=== PATIENT | male | born 1955 | race Caucasian/White ===

== ENCOUNTER 2018-10-29 11:52 | Inpatient (IN) | payer SELFPAY ==
[~2018-10-29] VITALS: Ht 175.3 cm; Wt 94.2 kg
[2018-10-29] MEDS ORDERED: CLINDAMYCIN 600MG IV 50 ML IV ONE (12:45)
[2018-10-29 13:42] LABS: Basophils # (auto) 0.1 uL; Basophils % (auto) 1.4 % (0.0-2.0); Eosinophils # (auto) 0.1 uL; Eosinophils % (auto) 2.7 % (0.0-7.0); Hematocrit 36.5 % (41.0-53.0); Hemoglobin 12.2 g/dL (13.5-17.5); Lymphocytes # (auto) 0.7 uL; Lymphocytes % (auto) 13.7 % (10.0-50.0); Mean Corpuscular Hemoglobin 33.9 pg (28.0-32.0); Mean Corpuscular Hgb Conc. 33.5 g/dL (32.0-36.0); Mean Corpuscular Volume 101.1 fL (80.0-100.0); Monocytes # (auto) 0.3 uL; Monocytes % (auto) 6.5 % (0.0-12.0); Neutrophils # (auto) 3.7 uL; Neutrophils % (auto) 75.7 % (37.0-80.0); Platelet Count (auto) 319 10^3/uL (140-450); Red Blood Cells 3.61 10^6/uL (4.5-5.90); Red Cell Distribution Width 16.7 % (11.8-14.3); White Blood Cell 4.8 10^3/uL (4.4-10.8)
[2018-10-29 13:56] LABS: Albumin 3.7 g/dL (3.4-5.0); Magnesium 1.7 mg/dL (1.6-2.6)
[2018-10-29 13:59] LABS: BUN/Creatinine Ratio 3.5; Bilirubin, Total 0.8 mg/dL (0.2-1.0); Total Protein 7.3 g/dL (6.4-8.2)
[2018-10-29 14:16] LABS: Potassium 2.9 mmol/L (3.5-5.1)
[2018-10-29] MEDS ORDERED: NITROGLYCERIN 0.4 MG SL TAB SL PRN (14:30)
[2018-10-29] MEDS ORDERED: HYDROcodone-ACET 5/325MG TAB PO PRN (14:30)
[2018-10-29] MEDS ORDERED: FUROSEMIDE 40 MG/4 ML VIAL IV ONE (14:30)
[2018-10-29] MEDS ORDERED: MORPHINE SULFATE 4 MG/ML SYR/VIAL IV PRN (14:30)
[2018-10-29] MEDS ORDERED: ONDANSETRON HCL 4 MG/2 ML VIAL IV PRN (14:30)
[2018-10-29] MEDS ORDERED: POTASSIUM CHL 20 Meq TABLET PO ONE (14:30)
[2018-10-29] MEDS ORDERED: MULTIPLE VITAMIN TAB PO ONE (14:30)
[2018-10-29] MEDS ORDERED: FUROSEMIDE 40 MG/4 ML VIAL IV STA (15:20)
[2018-10-29] MEDS ORDERED: POTASSIUM CHL 20MEQ/100ML 100 ML IV ONE (15:30)
[2018-10-29] MEDS: FUROSEMIDE 40 MG/4 ML VIAL IV SCH (18:22)
[2018-10-29 19:38] LABS: Urine WBC None Seen /hpf (0 - 3)
[2018-10-29 19:52] LABS: Urine Bacteria NONE SEEN /hpf (None Seen); Urine Blood Negative /uL (Negative); Urine Specific Gravity 1.004 (1.001-1.035)
[2018-10-29 20:05] LABS: Alcohol, Urine < 3.0 mg/dL (0-5); Amphetamine Screen, Urine NEGATIVE (NEGATIVE); Barbiturate Scree,Urine NEGATIVE (NEGATIVE); Benzodiazephine Screen, Urine NEGATIVE (NEGATIVE); Cannabinoid Screen, Urine NEGATIVE (NEGATIVE); Cocaine Screen, Urine NEGATIVE (NEGATIVE); Opiate Scree,Urine NEGATIVE (NEGATIVE); Phencyclidine Screen, Urine NEGATIVE (NEGATIVE)
--- NOTE | 2018-10-29 21:06 | NUR ---
Telemetry admit from ER [facility] admitted to Telemetry unit after SBAR received. Patient oriented to Ramone Pacheco, primary RN, unit, room, bed, and unit policies regarding patient care and visiting hours. Patient now on continuous telemetry monitoring, tele box # 19 and telemetry reading on arrival to unit is sinus rhythm. Patient placed on bedside oxygen, weighed by bedscale and encouraged to call if they need something. All questions and concerns addressed, patient verbalized understanding.
[2018-10-29 21:30] VITALS: BP 148/80
[2018-10-29] MEDS: POTASSIUM CHL 20 Meq TABLET PO SCH (21:37)
[2018-10-29] MEDS: ceFAZolin 1GM/50ML 50 ML IV SCH (21:37)
[2018-10-29 21:58] VITALS: BP 148/80
[2018-10-30 05:04] VITALS: BP 117/70
[2018-10-30 05:38] LABS: Basophils # (auto) 0.1 uL; Eosinophils # (auto) 0.1 uL; Lymphocytes # (auto) 0.5 uL
[2018-10-30 05:41] LABS: Basophils % (auto) 1.2 % (0.0-2.0); Eosinophils % (auto) 2.4 % (0.0-7.0); Hematocrit 35.8 % (41.0-53.0); Hemoglobin 12.6 g/dL (13.5-17.5); Lymphocytes % (auto) 9.1 % (10.0-50.0); Mean Corpuscular Hemoglobin 35.5 pg (28.0-32.0); Mean Corpuscular Hgb Conc. 35.3 g/dL (32.0-36.0); Mean Corpuscular Volume 100.5 fL (80.0-100.0); Monocytes # (auto) 0.2 uL; Neutrophils # (auto) 4.1 uL; Neutrophils % (auto) 82.3 % (37.0-80.0); Platelet Count (auto) 296 10^3/uL (140-450); Red Blood Cells 3.56 10^6/uL (4.5-5.90); Red Cell Distribution Width 16.5 % (11.8-14.3)
[2018-10-30] MEDS: ceFAZolin 1GM/50ML 50 ML IV SCH ×3 (05:59→21:55)
[2018-10-30] MEDS: FUROSEMIDE 40 MG/4 ML VIAL IV SCH ×2 (05:59→17:20)
[2018-10-30 06:06] LABS: INR 1.16 (0.9-1.15); Partial Thromboplastin Time 40.8 sec (23.78-33.04); Prothrombin Time 12.3 sec (9.27-12.13)
[2018-10-30 06:34] LABS: Potassium 3.6 mmol/L (3.5-5.1)
[2018-10-30 07:04] LABS: BUN/Creatinine Ratio 4.8; Calcium 7.7 mg/dL (8.5-10.1)
--- NOTE | 2018-10-30 07:30 | NUR ---
Patient stable at this time, no sob or pain. Endorsed care to Chano JOYNER.
[2018-10-30 08:00] VITALS: BP 112/81
--- NOTE | 2018-10-30 08:40 | NUR ---
PATIENT DISPOSITION PATIENT DOES NOT STAY ON TOPIC IN CONVERSATION, SPEECH IS SLOW AND SOMEWHAT GARBLED, MANY TIMES HIS STATEMENTS ARE IRRELEVANT TO QUESTIONS BEING ASKED, DISTRACTION TECHNIQUES AND FREQUENT REPEATED CUES ARE NEEDED TO BE ABLE TO EXIT A CONVERSATION WITH THE PATIENT. PATIENT FREQUENTLY ASKS FOR ORANGE JUICE AND ROOM TEMPERATURE WATER.
[2018-10-30 08:48] VITALS: BP 112/81
[2018-10-30] MEDS: POTASSIUM CHL 20 Meq TABLET PO SCH ×2 (11:31→21:56)
[2018-10-30] MEDS: MULTIPLE VITAMIN TAB PO SCH (11:32)
[2018-10-30] MEDS: LISINOPRIL 10 MG TAB PO SCH (11:32)
[2018-10-30] MEDS: ENOXAPARIN SOD 40 MG/0.4 ML SYRINGE SC SCH (11:33)
[2018-10-30 13:00] VITALS: BP 163/98
--- NOTE | 2018-10-30 13:40 | NUR ---
MD ROUNDS DR. PHILLIPS AT BEDSIDE TO DISCUSS POC WITH PT, PT FREQUENTLY SPEAKS OVER THE DOCTOR WITHOUT LISTENING, PT REMINDED THAT HE NEEDS TO LIMIT HIS FLUID INTAKE AND THAT HE CANNOT DRINK A PITCHER OF WATER EVERY TIME HE URINATES, WILL REMIND STUDIO OPERATIONS MANAGER OF FLUID RESTRICTIONS, PATIENT ARGUED STATING THAT HE WILL HAVE A HEART ATTACK IF HE DOES NOT GET HIS WATER, MD NOTIFIED AND HAS PLACED A CONSULT TO [place] MIXER OPERATOR TO RE-EXPLAIN THE IMPORTANCE OF LIMITING FLUIDS IT RELATES TO THE HEART. WILL CONTINUE TO MONITOR PATIENT.
[2018-10-30] MEDS ORDERED: LEVOTHYROXINE SODIUM 50 MCG TAB PO ONE (13:45)
[2018-10-30] MEDS: LORazepam 0.5 MG TAB PO PRN (16:10)
[2018-10-30 16:51] VITALS: BP 142/84
--- NOTE | 2018-10-30 19:30 | NUR ---
OPENING NOTE REPORT RECEIVED FROM DAY SHIFT RN. PATIENT IS A/OX4, ABLE TO ANSWER ALL QUESTIONS APPROPRIATELY. PATIENT IS RESTING IN BED, DENIES ANY SOB OR DISTRESS. FULL PHYSICAL ASSESSMENT DONE-SEE INTERVENTIONS. EDEMA NOTED TO BILATERAL LOWER EXTREMITIES, NO OPEN AREAS NOTED. PATIENT ABLE TO TURN AND REPOSITION SELF IN BED WITHOUT ASSISTANCE. POC FOR TONIGHT DISCUSSED. PATIENT MADE AWARE OF FLUID RESTRICTION. PATIENT NOT COMPLIANT AND STATES, "WELL EVERY TIME I PEE I NEED TO REPLACE THE FLUID". EDUCATED PATIENT THAT HE IS IN FLUID EXCESS AND THAT LASIX WAS GIVEN TO HELP RID OF THE EXTRA FLUID AND THAT A FLUID RESTRICTION WILL HELP DECREASE SWELLING. PATIENT VERBALIZED UNDERSTANDING. ONLY 100ML OF WATER CURRENTLY AT BEDSIDE. WILL DO STRICT INTAKE AND OUTPUT. ALL QUESTIONS ANSWERED. WILL MONITOR Q1H PRN THROUGHOUT SHIFT.CALL LIGHT WITHIN REACH.
[2018-10-30 21:40] VITALS: BP 138/68
[2018-10-31] MEDS: LORazepam 0.5 MG TAB PO PRN ×2 (01:08→10:52)
--- NOTE | 2018-10-31 04:47 | NUR ---
NONCOMPLIANT PATIENT NON COMPLAINT WITH KEEPING NASAL CANNULA ON DURING PATIENT ROUNDS, EACH TIME PATIENT IS FOUND WITH NASAL CANNULA OFF. PATIENT EDUCATED TO KEEP CANNULA ON FOR BETTER OXYGENATION. PATIENT STATES, "IT MAKES ME HAVE TOO MUCH MUCUS". PATIENT FORCEFULLY BLOWING NOSE INTO TISSUE PAPER. PATIENT REFUSES TO PUT NASAL CANNULA BACK ON. CURRENT SPO2 AT 90%. EDUCATED PATIENT ON THE RISK OF DE-SATURATION. PATIENT STILL REFUSING TO PLACE NASAL CANNULA BACK ON AT THIS TIME
[2018-10-31 04:51] VITALS: BP 158/69
[2018-10-31 05:14] LABS: Basophils # (auto) 0.1 uL; Lymphocytes # (auto) 0.6 uL; Mean Corpuscular Volume 99.9 fL (80.0-100.0)
[2018-10-31 05:17] LABS: Basophils % (auto) 1.1 % (0.0-2.0); Eosinophils # (auto) 0.1 uL; Eosinophils % (auto) 2.5 % (0.0-7.0); Hematocrit 35.8 % (41.0-53.0); Hemoglobin 12.6 g/dL (13.5-17.5); Lymphocytes % (auto) 10.7 % (10.0-50.0); Mean Corpuscular Hemoglobin 35.2 pg (28.0-32.0); Mean Corpuscular Hgb Conc. 35.2 g/dL (32.0-36.0); Monocytes # (auto) 0.2 uL; Monocytes % (auto) 4.2 % (0.0-12.0); Neutrophils # (auto) 4.7 uL; Neutrophils % (auto) 81.5 % (37.0-80.0); Platelet Count (auto) 295 10^3/uL (140-450); Red Blood Cells 3.58 10^6/uL (4.5-5.90); Red Cell Distribution Width 16.7 % (11.8-14.3); White Blood Cell 5.8 10^3/uL (4.4-10.8)
[2018-10-31 05:41] LABS: Anion Gap 9 (5-15); BUN/Creatinine Ratio 6.1; Blood Urea Nitrogen 6 mg/dL (7-18); Calcium 7.6 mg/dL (8.5-10.1); Carbon Dioxide 34 mmol/L (21-32); Chloride 78 mmol/L (98-107); GFR African American 98 mL/min; GFR Non-African American 81 mL/min; Glucose 85 mg/dL (74-106); Potassium 3.2 mmol/L (3.5-5.1); Sodium 121 mmol/L (136-145)
--- NOTE | 2018-10-31 06:00 | NUR ---
PATIENT UPSET AND ASKING WHEN HE CAN GO HOME EXPLAINED TO PATIENT THAT HE MUST SEE THE HELPDESK MANAGER FIRST. PATIENT BECAME VISIBLY UPSET AND TEARFUL STATING, "I'M NOT COMFORTABLE, I'M COLD AND I HAVE A COUGH". OFFERED TO CALL HOSPITALIST TO GET AN ORDER FOR COUGH MEDICINE. PATIENT DECLINED AND STATES, "NO, I DON'T TAKE COUGH SYRUP, I DON'T WANT THAT". OFFERED TO GET PATIENT EXTRA BLANKETS, PATIENT REFUSED AND STATES, "I WANT A HEATED BLANKET, ONE THAT YOU PLUG INTO THE WALL". EXPLAINED TO PATIENT THAT WE DO NOT HAVE ANY HEATED BLANKETS ON THE UNIT, ESPECIALLY ANY THAT PLUG INTO THE WALL. PATIENT REFUSES THIS RN'S OFFER TO GIVE HIM MORE BLANKETS AND REFUSES ANY ATTEMPT TO RECEIVE COUGH SYRUP. PATIENT ALSO STATES, "CAN I HAVE A COUPLE ORANGE JUICES AND MY WATER PITCHER FILLED UP?". EDUCATED PATIENT THAT HE IS STILL ON A FLUID RESTRICTION AND THAT I CAN OFFER HIM A LIMITED AMOUNT OF WATER. PATIENT APPEARS UPSET IS NOT ACCEPTING OF THE MD ORDER FOR A FLUID RESTRICTION DESPITE CONSTANT RE-EDUCATION ON THE REASON/NEED FOR A FLUID RESTRICTION.
[2018-10-31] MEDS: FUROSEMIDE 40 MG/4 ML VIAL IV SCH ×3 (06:22→18:00)
[2018-10-31] MEDS: ceFAZolin 1GM/50ML 50 ML IV SCH ×3 (06:22→22:00)
[2018-10-31] MEDS: LEVOTHYROXINE SODIUM 50 MCG TAB PO SCH (06:22)
--- NOTE | 2018-10-31 07:05 | NUR ---
CLOSING NOTE REPORT ENDORSED TO DAY SHIFT RN TO ASSUME CARE OF PATIENT PATIENT RESTING COMFORTABLY IN BED, NO S/S OF DISTRESS NOTED AT THIS TIME. CALL LIGHT WITHIN REACH
[2018-10-31 08:00] VITALS: BP 179/118
[2018-10-31 09:00] VITALS: BP 179/118
[2018-10-31] MEDS: POTASSIUM CHL 20 Meq TABLET PO SCH ×2 (10:50→22:00)
[2018-10-31] MEDS: MULTIPLE VITAMIN TAB PO SCH (10:50)
[2018-10-31] MEDS: ENOXAPARIN SOD 40 MG/0.4 ML SYRINGE SC SCH (10:51)
[2018-10-31] MEDS: LISINOPRIL 10 MG TAB PO SCH (10:51)
[2018-10-31 13:00] VITALS: BP 185/106
--- NOTE | 2018-10-31 13:00 | NUR ---
PT DEMEANOR PT VERY ANXIOUS, PACING, ROAMING, FIDGETING, PT ATTEMPTING TO PULL OUT IV, STATES HE WANTS TO LEAVE, EXPLAINED THE RISKS OF LEAVING AMA, PT STILL WANTS TO LEAVE, ATTEMPTED TO DISTRACT AND CALM PT
--- NOTE | 2018-10-31 13:40 | NUR ---
PATIENT ROUNDS PT OBSERVED, BY THIS RN, URINATING ON BATHROOM FLOOR, EXPLAINED TO PT THIS IS UNACCEPTABLE, PT STATES HE DOES NOT CARE, PT PUTTING ON HIS STREET CLOTHES, HIS CLOTHING IS VERY MALODOROUS AND HAS VISIBLE DIRT LIVE /STAINING. REDIRECTED PATIENT, ENCOURAGED TO WAIT FOR THE DOCTOR TO COME IN AND DISCUSS POC
--- NOTE | 2018-10-31 14:01 | NUR ---
CALL TO REQUESTED PBX PAGE DR. DAMIAN, PATIENT STATING HE WILL LEAVE AMA, ADVISED AGAINT THIS ACTION, PT VERY ANXIOUS, BLOOD PRESSURE READING AT 185/106, WILL AWAIT RETURN CALL FROM DR. DAMIAN FOR NEW ORDERS FOR PT
--- NOTE | 2018-10-31 14:30 | NUR ---
WENT TO MD OFFICE WALKED TO OFFICE OF HOSPITALIST TO NOTIFY MD OF ELEVATED BP AND THREAT OF AMA, DR DAMIAN WILL PLACE ORDER TO ADDRESS HTN, WILL AWAIT NEW ORDER AND GIVE TO PT WHEN AVAILABLE
[2018-10-31] MEDS ORDERED: POTASSIUM CHL 20 Meq TABLET PO ONE (14:45)
[2018-10-31] MEDS ORDERED: METOPROLOL TARTRATE 25 MG TAB PO ONE ×2 (14:45→22:30)
[2018-10-31] MEDS ORDERED: SODIUM BICARBONATE 650 MG TAB PO ONE (15:00)
--- NOTE | 2018-10-31 15:19 | NUR ---
PT ORIENTATION REASSESSED PT ORIENTATION D/T PT NOT MAKING SENSE, PT BELIEVES HE IS AT A FRIENDS HOUSE, REORIENTED PT TO HOSPITAL AND REASON FOR VISIT, PT SAID HE HAD NO IDEA AND ASKED WHY HE WAS IN THE HOSPITAL, EXPLAINED THIS TO PT. WILL CONTINUE TO MONITOR. PT REFUSED POTASSIUM PILL THIS AFTERNOON AFTER MUCH EXPLANATION OF THE IMPORTANCE OF WHY IT WAS PRESCRIBED, PT STILL REFUSED
[2018-10-31 17:00] VITALS: BP 192/112
--- NOTE | 2018-10-31 17:06 | NUR ---
CALL TO CALLED AND STOPPED BY OFFICE OF DR. DAMIAN, NO ANSWER. BP 185/106 AND PULSE 81, GAVE METOPROLOL 12.5MG, REASSESSED, PT BP 192/112 PULSE 75. CALL TO ON-CALL DR. MART, REC'D IMMEDIATE RETURN CALL TO ADDRESS PATIENTS HYPERTENSION, REC'D NEW ORDERS, WILL CONTINUE TO MONITOR PT
[2018-10-31] MEDS: hydrALAZINE HCL 20 MG/ML VL IV PRN (17:41)
--- NOTE | 2018-10-31 17:50 | NUR ---
CALL TO LOTTERY OFFICE MANAGER REPORTED TO LOTTERY OFFICE MANAGER THAT PT IS INCREASINGLY CONFUSED, HE PULLED OUT HIS IV, REMOVED HIS TELEMETRY BOX, AND GOT DRESSED INTO HIS STREET CLOTHES WHICH HAVE A STRONG SMELL OF URINE, PT WAS FOUND URINATING ONTO THE FLOOR NUMEROUS TIMES THROUGHOUT THE DAY, HE ANSWERS "AT SCHOOL" WHEN ASKED WHERE HE IS AT, PT WAS THEN FOUND WONDERING IN ANOTHER PATIENTS ROOM, PT RETURNED TO ROOM AND BEHAVIOR REDIRECTED, LOTTERY OFFICE MANAGER TO SEND A SITTER. DUE TO PT REMOVING IV, HE WILL HAVE A DELAY IN RECEIVING HIS BP MEDS
--- NOTE | 2018-10-31 18:42 | NUR ---
IV INSERTION PATIENT REFUSED TO RECEIVE A NEW IV LINE, IT WAS EXPLAINED TO PATIENT WHY IV LINE IS IMPORTANT AT THIS TIME, PT NEEDED TO BE REORIENTED SEVERAL TIMES, PT WAS ASKED MULTIPLE TIMES TO RECEIVE A NEW IV LINE AND REFUSED EACH TIME SAYING "NO PLEASE DON'T", THIS LEFT RN UNABLE TO ADMIN MEDICATION TO DECREASE HIGH BLOOD PRESSURE, PT ALSO REFUSED TO HAVE TELE MONITOR ON, MARKET RESEARCH SPECIALIST ATTEMPTED SEVERAL TIMES TO PLACE NEW LEADS ON, WILL ENDORSE TO NIGHTSORFT RN
--- NOTE | 2018-10-31 19:10 | NUR ---
OPENING SHIFT NOTE ASSUMED CARE OF PATIENT FROM DAY SHIFT RN SILVIO. PATIENT IS RESTING IN BED WITH EYES OPENED. SITTER IS AT BEDSIDE. PATIENT IS ALERT AND ORIENTED X3. HE HAS NO IV ACCESS. NO OXYGEN AND NO TELEMONITOR ON. PATIENT REFUSES IV, TELE, AND OXYGEN AT THIS TIME. PATIENT STATES THAT HE A 63 YEAR OLD MAN AND DOES NOT NEED TO BE IN THE HOSPITAL. HE STATES THAT HE JUST WANTS TO BE LEFT ALONE, AND THAT BLAZE AND SOME OF HIS OTHER COWORKERS FORCEFULLY MAKE HIM COME TO THE HOSPITAL. PATIENT WAS EDUCATED ON RISKS OF NOT HAVING O2 AND TELE ON. HE WAS ALSO EDUCATED ON THE RISKS OF NOT HAVING IV ACCESS. PATIENT BLOOD PRESSURE IS 159/74 AND WAS EDUCATED ON THE RISKS OF NOT GETTING MEDICATION FOR HIS BLOOD PRESSURE. PATIENT WAS OFFERED PO MEDICATIONS AND PATIENT STATES HE WILL NOT TAKE PILLS FOR HIS BP. HE STATES THAT HE MEDITATES, AND THAT IF WE WOULD LEAVE HIM ALONE THEN HIS BP WOULD GO DOWN. PATIENT VERBALIZED UNDERSTANDING. CHARGE NURSE DANIA WAS NOTIFIED AND TRIED TO EDUCATED AND ENCOURAGE IV ACCESS WELL. PATIENT STILL REFUSES AT THIS TIME. PATIENT HAS NO S/S OF DISTRESS OR PAIN AT THIS TIME. WILL CONTINUE TO MONITOR.
[2018-10-31] MEDS: FAMOTIDINE 20 MG TAB PO SCH (22:00)
[2018-10-31] MEDS: METOPROLOL TARTRATE 25 MG TAB PO SCH (22:00)
[2018-10-31] MEDS: SODIUM BICARBONATE 650 MG TAB PO SCH (22:00)
--- NOTE | 2018-10-31 22:15 | NUR ---
SPOKE WITH ANDRE VERA NOTIFIED THAT PATIENTS BP IS 189/91 AND THAT PATIENT HAS NEW ONSET CONFUSION. ALSO NOTIFIED THAT PATIENT HAS NO TELE, O2, OR IV ACCESS. JODY STATED THAT HE WILL PUT IN NEW ORDERS.
--- NOTE | 2018-10-31 22:20 | NUR ---
PATIENT REFUSING 2200 MEDICATIONS PATIENT REFUSES TO TAKE HIS NIGHT TIME MEDICATIONS WHICH INCLUDES HIS BP MEDICATION, POTASSIUM, AND SODIUM BICARB. BP IS 189/91. PATIENT EDUCATED ON RISKS. PATIENT STATES THAT HE JUST WANTS TO BE LEFT ALONE. HOSPITALIST JODY. Addendum: 10/31/18 at 2252 by CARL LANDRY RN RN IS AWARE OF PATIENTS CONFUSION AND NONCOMPLIANCE
[2018-10-31] MEDS ORDERED: LORazepam 0.5 MG TAB PO PRN (22:30)
[2018-11-01 05:00] VITALS: BP 132/81
[2018-11-01] MEDS: ceFAZolin 1GM/50ML 50 ML IV SCH (06:00)
[2018-11-01] MEDS: FUROSEMIDE 40 MG/4 ML VIAL IV SCH (06:00)
--- NOTE | 2018-11-01 06:00 | NUR ---
PATIENT STILL REFUSES IV AND PO MEDICATIONS PATIENT AGAIN ENCOURAGED TO ALLOW IV ACCESS. PATIENT STILL REFUSES STATING THAT HE HATES NEEDLES. PATIENT DID TAKE PO LEVOTHYROINE THIS MORNING. PATIENT STATES THAT IF HIS ANTIBIOTICS ARE CHANGED TO PO THEN HE WILL TAKE THEM. PATIENT STATES THAT HE WILL NOT TAKE ANY BLOOD PRESSURE MEDICATIONS EVEN IF PO BECAUSE HE HAS NEVER TAKEN ANYTHING FOR BLOOD PRESSURE IN HIS LIFE. PATIENT STATES THAT HE WANTS TO LOWER HIS BP BY OTHER MEANS.
[2018-11-01] MEDS: LEVOTHYROXINE SODIUM 50 MCG TAB PO SCH (06:25)
[2018-11-01 06:35] LABS: Eosinophils # (auto) 0 uL; Eosinophils % (auto) 0.1 % (0.0-7.0); Lymphocytes # (auto) 0.3 uL; Monocytes # (auto) 0.5 uL; Neutrophils # (auto) 3.3 uL; White Blood Cell 4.1 10^3/uL (4.4-10.8)
[2018-11-01 06:38] LABS: Basophils # (auto) 0.1 uL; Basophils % (auto) 1.2 % (0.0-2.0); Hematocrit 36.8 % (41.0-53.0); Hemoglobin 12.9 g/dL (13.5-17.5); Lymphocytes % (auto) 6.5 % (10.0-50.0); Mean Corpuscular Hemoglobin 35.4 pg (28.0-32.0); Mean Corpuscular Hgb Conc. 35.1 g/dL (32.0-36.0); Mean Corpuscular Volume 100.7 fL (80.0-100.0); Monocytes % (auto) 11.7 % (0.0-12.0); Neutrophils % (auto) 80.5 % (37.0-80.0); Nucleated Red Blood Cells % 0.2 %; Platelet Count (auto) 264 10^3/uL (140-450); Red Blood Cells 3.65 10^6/uL (4.5-5.90); Red Cell Distribution Width 16.5 % (11.8-14.3)
[2018-11-01 06:53] LABS: Magnesium 1.6 mg/dL (1.6-2.6)
[2018-11-01 07:04] LABS: BUN/Creatinine Ratio 6.6; Bilirubin, Total 1.3 mg/dL (0.2-1.0); Total Protein 7.6 g/dL (6.4-8.2)
[2018-11-01 07:08] LABS: Potassium 2.9 mmol/L (3.5-5.1)
--- NOTE | 2018-11-01 07:15 | NUR ---
CLOSING SHIFT NOTE PATIENT IS RESTING IN BED WITH EYES OPENED. SITTER IS AT BEDSIDE. PATIENT IS ALERT AND ORIENTED X3. HE HAS NO IV ACCESS. NO OXYGEN AND NO TELEMONITOR ON. PATIENT REFUSES IV, TELE, AND OXYGEN AT THIS TIME. PATIENT WAS EDUCATED ON RISKS OF NOT HAVING O2 AND TELE ON. HE WAS ALSO EDUCATED ON THE RISKS OF NOT HAVING IV ACCESS. PATIENT VERBALIZED UNDERSTANDING. NO S/S OF DISTRESS OR PAIN AT THIS TIME. WILL CONTINUE TO MONITOR.
--- NOTE | 2018-11-01 07:27 | NUR ---
CRITICAL LAB VALUES/AND NEED ANTIBIOTICS CHANGED TO PO/ HOSPITALIST PAGED
[2018-11-01] MEDS ORDERED: POTASSIUM CHL 20 Meq TABLET PO ONE (07:30)
--- NOTE | 2018-11-01 07:31 | NUR ---
obtained order for potassium from Tino Cruz for critical potassium
--- NOTE | 2018-11-01 07:34 | NUR ---
CLOSING SHIFT NOTE PATIENT IS RESTING IN BED. SITTER IS AT BEDSIDE. NO S/S OF DISTRESS AT THIS TIME. BED IS IN LOWEST POSITION, LOCKED, AND CALL LIGHT IS IN REACH. CARE TRANSFERRED TO DAY SHIFT ANYA DIEHL
--- NOTE | 2018-11-01 08:00 | NUR ---
Opening Shift Note Assumed care of patient, awake and alert. No S/S of distress/SOB or pain. Instructed on POC and to call for assist PRN, will continue to monitor for changes Q1hr and PRN. Addendum: 11/01/18 at 1146 by Gabe Christopher RN Patient refused nasal canula and tele box. The patient was educated about the risks and verbalizes his that he understands.
[2018-11-01] MEDS: METOPROLOL TARTRATE 25 MG TAB PO SCH ×3 (10:00→21:30)
[2018-11-01] MEDS: SODIUM BICARBONATE 650 MG TAB PO SCH ×2 (10:00→21:29)
[2018-11-01] MEDS: LISINOPRIL 10 MG TAB PO SCH (10:00)
[2018-11-01] MEDS: FAMOTIDINE 20 MG TAB PO SCH ×2 (10:00→21:30)
[2018-11-01] MEDS: POTASSIUM CHL 20 Meq TABLET PO SCH ×2 (10:35→21:30)
[2018-11-01] MEDS: MULTIPLE VITAMIN TAB PO SCH (10:35)
[2018-11-01] MEDS: ENOXAPARIN SOD 40 MG/0.4 ML SYRINGE SC SCH (10:35)
--- NOTE | 2018-11-01 13:30 | NUR ---
@[id number]- Dr. Lock is at the patient's bed side. She discussed the need to take medications. Dr. Lock will discontinue tele order due to the patient's refusal to wear the telemetry box.
[2018-11-01] MEDS ORDERED: MAGNESIUM SULFATE 1GM/100ML 100 ML IV ONE (14:15)
[2018-11-01] MEDS ORDERED: THIAMINE HCL 100 MG TAB PO ONE (14:15)
--- NOTE | 2018-11-01 14:26 | NUR ---
patient refused to let me take vitals at 9:00am,13:00pm. RN notified
--- NOTE | 2018-11-01 14:30 | NUR ---
NUTRITION ASSESSMENT NOTES Please refer to link notes of nutrition screen form filed under the intervention section of the plan of care for further details. Est. Needs: 1850 kcal to 2300 kcal (20-25 kcal/kgBW), 74 gms to 93 gms pro (0.8-1.0 gms/kgBW). Will continue to monitor pertinent labs and reassess nutrient need prn Thank you. Addendum: 11/01/18 at [address] Amended: Links added.
--- NOTE | 2018-11-01 15:27 | NUR ---
patient reported that his ID band is incorrect and does not display his right last name. Admitting notified and new ID obtained.
[2018-11-01] MEDS ORDERED: MAGNESIUM OXIDE 400 MG TAB PO ONE (15:30)
[2018-11-01] MEDS: FUROSEMIDE 40 MG TAB PO SCH (18:46)
--- NOTE | 2018-11-01 19:30 | NUR ---
Opening Shift Note Assumed care of patient, awake and alert. No S/S of distress/SOB or pain. Pt is currently resting in bed with the rails up x2, bed is locked in the lowest position and the call light is within reach. Pt has been refusing Iv access and does not have a IV. Instructed on POC and to call for assist as needed. Will continue to monitor.
[2018-11-01] MEDS: CLINDAMYCIN HCL 150 MG CAP PO SCH (21:30)
[2018-11-02 05:07] VITALS: BP 117/70
[2018-11-02] MEDS: LEVOTHYROXINE SODIUM 50 MCG TAB PO SCH (06:18)
[2018-11-02] MEDS: CLINDAMYCIN HCL 150 MG CAP PO SCH ×3 (06:19→22:10)
[2018-11-02] MEDS: FUROSEMIDE 40 MG TAB PO SCH ×2 (06:19→17:38)
[2018-11-02 07:07] LABS: Calcium 7.8 mg/dL (8.5-10.1); Magnesium 1.8 mg/dL (1.6-2.6); Potassium 3.4 mmol/L (3.5-5.1)
[2018-11-02 07:09] LABS: BUN/Creatinine Ratio 11.6
--- NOTE | 2018-11-02 08:00 | NUR ---
Opening Shift Note Assumed care of patient, awake, alert and oriented X4, with periods of confusion. No S/S of distress/SOB or pain. O2 @ 2 LPM via nasal cannula, patient insists on placing nasal cannula in mouth. IV X2 to right and left forearm, 20 gauges, patent and saline locked. Instructed on POC and to call for assist PRN, verbalized understanding. Bed locked, in lowest position, call light within reach, sitter remains at bedside for patient safety as he attempts to remove IV lines and O2, will continue to monitor for changes Q1hr and PRN.
[2018-11-02 09:00] VITALS: BP 129/66
[2018-11-02] MEDS: SODIUM BICARBONATE 650 MG TAB PO SCH ×2 (10:33→22:10)
[2018-11-02] MEDS: THIAMINE HCL 100 MG TAB PO SCH (10:34)
[2018-11-02] MEDS: POTASSIUM CHL 20 Meq TABLET PO SCH ×2 (10:34→22:11)
[2018-11-02] MEDS: METOPROLOL TARTRATE 25 MG TAB PO SCH ×2 (10:35→22:00)
[2018-11-02] MEDS: MULTIPLE VITAMIN TAB PO SCH (10:35)
[2018-11-02] MEDS: LISINOPRIL 10 MG TAB PO SCH (10:35)
[2018-11-02] MEDS: FAMOTIDINE 20 MG TAB PO SCH ×2 (10:35→22:11)
[2018-11-02] MEDS: ENOXAPARIN SOD 40 MG/0.4 ML SYRINGE SC SCH (10:36)
[2018-11-02 13:00] VITALS: BP 109/63
--- NOTE | 2018-11-02 14:07 | NUR ---
ROUNDS Dr Lock at bedside for rounds, new orders received and followed through. Patient updated on plan of care, verbalized understanding.
[2018-11-02] MEDS ORDERED: MAGNESIUM SULFATE 1GM/100ML 100 ML IV ONE (14:30)
[2018-11-02] MEDS ORDERED: POTASSIUM CHL 20 Meq TABLET PO ONE (14:30)
[2018-11-02 17:00] VITALS: BP 149/93
--- NOTE | 2018-11-02 19:20 | NUR ---
Care endorsed to ANYA Bravo, night nurse.
--- NOTE | 2018-11-02 19:30 | NUR ---
Opening Shift Note Assumed care of patient, awake and alert. No S/S of distress/SOB or pain. Sitter at bedside. Instructed on POC and to call for assist PRN, will continue to monitor for changes Q1hr and PRN.
--- NOTE | 2018-11-02 20:00 | NUR ---
Patient demanding to have IV removed from left FA. Patient c/o pain. IV was patent when flushed. Tried to educated patient regarding need for 2 IV on Sunday, but patient still demanded to have it removed or that he would remove it himself.
[2018-11-02 21:30] VITALS: BP 101/54
[2018-11-03 05:00] VITALS: BP 127/75
[2018-11-03 06:10] LABS: Calcium 7.8 mg/dL (8.5-10.1); Potassium 3.7 mmol/L (3.5-5.1)
[2018-11-03 06:13] LABS: BUN/Creatinine Ratio 14.4
[2018-11-03] MEDS: CLINDAMYCIN HCL 150 MG CAP PO SCH ×3 (06:31→21:28)
[2018-11-03] MEDS: LEVOTHYROXINE SODIUM 50 MCG TAB PO SCH (06:32)
[2018-11-03] MEDS: FUROSEMIDE 40 MG TAB PO SCH (06:32)
--- NOTE | 2018-11-03 06:56 | NUR ---
Received call in the am for a Critical Sodium of 119. Will endorse to paramjit JOYNER.
--- NOTE | 2018-11-03 08:00 | NUR ---
Opening Shift Note Assumed care of patient, awake, alert and oriented X4. No S/S of distress/SOB or pain. O2@ 2 LPM via nasal cannula with sats @ 94%. IV to right forearm, 20 gauge, patent and saline locked. Instructed on POC and to call for assist PRN, verbalized understanding. Bed locked, in lowest position, call light within reach, will continue to monitor for changes Q1hr and PRN.
[2018-11-03] MEDS: THIAMINE HCL 100 MG TAB PO SCH (10:09)
[2018-11-03] MEDS: SODIUM BICARBONATE 650 MG TAB PO SCH ×2 (10:09→21:33)
[2018-11-03] MEDS: POTASSIUM CHL 20 Meq TABLET PO SCH (10:09)
[2018-11-03] MEDS: METOPROLOL TARTRATE 25 MG TAB PO SCH ×2 (10:10→22:00)
[2018-11-03] MEDS: MULTIPLE VITAMIN TAB PO SCH (10:10)
[2018-11-03] MEDS: LISINOPRIL 10 MG TAB PO SCH (10:10)
[2018-11-03] MEDS: FAMOTIDINE 20 MG TAB PO SCH ×2 (10:10→21:32)
[2018-11-03] MEDS: ENOXAPARIN SOD 40 MG/0.4 ML SYRINGE SC SCH (10:11)
[2018-11-03] MEDS ORDERED: SODIUM CHL 3% 500 ML IV ONE (15:15)
[2018-11-03] MEDS ORDERED: HYDROcodone-ACET 5/325MG TAB PO PRN (15:15)
--- NOTE | 2018-11-03 15:49 | NUR ---
ROUNDS Dr Lock at bedside for rounds, new orders received and followed through. Patient updated on plan of care, verbalized understanding.
[2018-11-03 16:07] LABS: BUN/Creatinine Ratio 12.3; Calcium 7.9 mg/dL (8.5-10.1); Potassium 3.8 mmol/L (3.5-5.1)
--- NOTE | 2018-11-03 19:00 | NUR ---
Opening Shift Note Assumed care of patient, awake and alert. No S/S of distress/SOB or pain. Instructed on POC and to call for assist PRN, will continue to monitor for changes Q1hr and PRN.
--- NOTE | 2018-11-03 19:22 | NUR ---
Care endorsed to ANYA Bravo, night nurse.
--- NOTE | 2018-11-03 22:00 | NUR ---
Patient refused his Lopressor with a blood pressure of 155/100. The patient was educated on the risk of refusing the blood pressure medication and he verbalized his understanding.
[2018-11-04 05:34] LABS: Basophils # (auto) 0.1 uL; Basophils % (auto) 2.3 % (0.0-2.0); Eosinophils # (auto) 0.1 uL; Hemoglobin 11.2 g/dL (13.5-17.5); Lymphocytes # (auto) 0.7 uL; Monocytes # (auto) 0.3 uL; Neutrophils # (auto) 1.5 uL; White Blood Cell 2.7 10^3/uL (4.4-10.8)
[2018-11-04 05:37] LABS: Eosinophils % (auto) 2.5 % (0.0-7.0); Hematocrit 31.7 % (41.0-53.0); Lymphocytes % (auto) 27.2 % (10.0-50.0); Mean Corpuscular Hemoglobin 35.1 pg (28.0-32.0); Mean Corpuscular Hgb Conc. 35.2 g/dL (32.0-36.0); Mean Corpuscular Volume 99.5 fL (80.0-100.0); Monocytes % (auto) 11.4 % (0.0-12.0); Neutrophils % (auto) 56.6 % (37.0-80.0); Nucleated Red Blood Cells % 0.1 %; Platelet Count (auto) 222 10^3/uL (140-450); Red Blood Cells 3.19 10^6/uL (4.5-5.90)
[2018-11-04] MEDS: CLINDAMYCIN HCL 150 MG CAP PO SCH ×3 (06:10→21:53)
[2018-11-04] MEDS: LEVOTHYROXINE SODIUM 50 MCG TAB PO SCH (06:10)
[2018-11-04 06:16] LABS: Potassium 3.8 mmol/L (3.5-5.1)
[2018-11-04 06:24] LABS: BUN/Creatinine Ratio 13.3; Calcium 8.3 mg/dL (8.5-10.1)
--- NOTE | 2018-11-04 06:47 | NUR ---
Received the patient's critical sodium level of 119. Will pass it on to day shift RN.
--- NOTE | 2018-11-04 07:44 | NUR ---
Received patient with sitter. Patient has confusion noted, removed his nasal cannula.
--- NOTE | 2018-11-04 07:45 | NUR ---
Received call from Nuclear Medicine to keep patient NPO, needs two IV lines. Patient has two IV lines. Nuclear Medicine made aware patient has confusion; sitter at bedside.
--- NOTE | 2018-11-04 07:45 | NUR ---
Care endorse to ANYA Smart
[2018-11-04] MEDS ORDERED: ADENOSINE 50 MG in GIVE UN-DILUTED 0 ML IV STA (08:23)
[2018-11-04 09:00] VITALS: BP 162/98
[2018-11-04] MEDS: LISINOPRIL 10 MG TAB PO SCH (10:00)
[2018-11-04] MEDS ORDERED: POTASSIUM CHL 20 Meq TABLET PO SCH (10:00)
[2018-11-04] MEDS: METOPROLOL TARTRATE 25 MG TAB PO SCH ×2 (10:00→21:53)
[2018-11-04] MEDS ORDERED: FUROSEMIDE 40 MG TAB PO SCH (10:00)
--- NOTE | 2018-11-04 10:05 | NUR ---
Patient not in the room at this time. Solitarioter/BILL said patient taken to Stress Lab for Stress Test.
[2018-11-04 10:21] VITALS: BP 147/83
[2018-11-04] MEDS ORDERED: ALBUTEROL SULF 2.5 MG/0.5ML(0.5%) NEB SOLN ONE (10:33)
[2018-11-04] MEDS ORDERED: IPRATROPIUM BROM 0.5 MG/2.5ML INH SOL ONE (10:33)
--- NOTE | 2018-11-04 11:27 | NUR ---
Patient not in the room. Patient at Stress Lab.
--- NOTE | 2018-11-04 12:00 | NUR ---
Patient back to room from Stress Lab. Patient refused Metoprolol and Lisinopril, insisted he does not take blood pressure medications, verbalized "Somebody sneaked it in so I would take it." Explained to patient his blood pressure is high but I will not sneak in the medication for his blood pressure if he does not want to take it. Sitter at bedside.
[2018-11-04] MEDS: THIAMINE HCL 100 MG TAB PO SCH (12:03)
[2018-11-04] MEDS: ENOXAPARIN SOD 40 MG/0.4 ML SYRINGE SC SCH (12:03)
[2018-11-04] MEDS: FAMOTIDINE 20 MG TAB PO SCH ×2 (12:03→21:54)
[2018-11-04] MEDS: SODIUM BICARBONATE 650 MG TAB PO SCH (12:04)
[2018-11-04] MEDS: MULTIPLE VITAMIN TAB PO SCH (12:04)
--- NOTE | 2018-11-04 14:32 | NUR ---
Called Dr. Bryant's office for Nephrology Consult. Spoke with Mellissa to relay the message to Dr. Bryant.
--- NOTE | 2018-11-04 14:35 | NUR ---
Dr. Lock called back to collect stools for C-difficile if patient had a bowel movement.
--- NOTE | 2018-11-04 15:10 | NUR ---
Joaquín/BILL Sewell said she already sent the stools for C-difficile to Laboratory via bullet.
--- NOTE | 2018-11-04 15:20 | NUR ---
Received a call from Radiology MD that patient's Stress Test result came out positive (+). MD made aware only imaging is available, no report yet.
--- NOTE | 2018-11-04 15:40 | NUR ---
Dr. Bryant called back for Nephrology Consult. MD ordered to insert Burch catheter, Urinalysis, Urine Sodium, Urine Osmolality, Urine Creatinine and CT Head w/o Contrast.
--- NOTE | 2018-11-04 15:51 | NUR ---
Dr. Lock called back. is aware that patient's Stress Test came out positive. Dr. Lock ordered to inform Dr. Groves.
--- NOTE | 2018-11-04 15:53 | NUR ---
Called Dr. Groves. made aware patient's Stress Test came out positive (+). Dr. Groves ordered Angiogram on Sunday.
[2018-11-04 17:00] VITALS: BP 151/82
--- NOTE | 2018-11-04 17:13 | NUR ---
Dr. Bryant at bedside. Patient refused the Burch catheter insertion, stated he's able to urinate using a urinal. Sitter at bedside.
[2018-11-04] MEDS ORDERED: acetaZOLAMIDE SODIUM 500 MG VL IV ONE (17:30)
[2018-11-04] MEDS ORDERED: SODIUM CHLORIDE 0.9% 1,000 ML IV SCH (17:30)
[2018-11-04] MEDS ORDERED: POTASSIUM CHLORIDE 20 MEQ in SODIUM CHLORIDE 0.9% 1,000 ML IV SCH (17:30)
--- NOTE | 2018-11-04 17:30 | NUR ---
Stool specimen for C-difficile and urine specimen sent to the Laboratory.
[2018-11-04 17:34] LABS: Urine WBC None Seen /hpf (0 - 3)
[2018-11-04 18:03] LABS: Creatinine, Urine 32 mg/dL (30.0-125.0); Sodium Urine 53 mmol/L (40-220)
[2018-11-04 18:30] LABS: Urine Bacteria NONE SEEN /hpf (None Seen); Urine Blood Negative /uL (Negative); Urine Specific Gravity 1.006 (1.001-1.035)
--- NOTE | 2018-11-04 19:15 | NUR ---
Waiting for the Pharmacy to send the IV medications ordered for 1729 today, production shift supervisor ANYA Bravo to administer the medications.
[2018-11-04] MEDS: SOD CHL 0.9%/ KCL 20MEQ 1,000 ML IV SCH (19:41)
[2018-11-04] MEDS: amLODIPine BESYLATE 5 MG TAB PO SCH ×2 (19:41→19:56)
[2018-11-04 22:00] VITALS: BP 149/93
[2018-11-05 05:00] VITALS: BP 174/111
[2018-11-05] MEDS: LEVOTHYROXINE SODIUM 50 MCG TAB PO SCH (06:11)
[2018-11-05] MEDS: CLINDAMYCIN HCL 150 MG CAP PO SCH ×3 (06:11→21:47)
--- NOTE | 2018-11-05 06:15 | NUR ---
Patient refusing blood pressure medication earlier on shift with Norvasc and in the am. BP in the am was 174/111. Performed patient teaching, but still refused BP medication.
[2018-11-05 07:02] LABS: BUN/Creatinine Ratio 10.5; Calcium 7.9 mg/dL (8.5-10.1); Potassium 3.7 mmol/L (3.5-5.1)
--- NOTE | 2018-11-05 07:35 | NUR ---
Patient in bed, nasal cannula on the mouth, refused to have the nasal cannula applied on his nares for O2 at 2 LPM. Sitter at bedside.
[2018-11-05] MEDS: SOD CHL 0.9%/ KCL 20MEQ 1,000 ML IV SCH ×2 (08:22→21:48)
[2018-11-05 09:00] VITALS: BP 146/79
[2018-11-05] MEDS: LISINOPRIL 10 MG TAB PO SCH (10:00)
[2018-11-05] MEDS: METOPROLOL TARTRATE 25 MG TAB PO SCH ×2 (10:00→21:47)
[2018-11-05] MEDS: amLODIPine BESYLATE 5 MG TAB PO SCH (10:00)
--- NOTE | 2018-11-05 10:40 | NUR ---
Patient refused his anti-hypertensive medications. Sitter at bedside.
[2018-11-05] MEDS: ENOXAPARIN SOD 40 MG/0.4 ML SYRINGE SC SCH (10:46)
[2018-11-05] MEDS: MULTIPLE VITAMIN TAB PO SCH (10:47)
[2018-11-05] MEDS: THIAMINE HCL 100 MG TAB PO SCH (10:47)
[2018-11-05] MEDS: FAMOTIDINE 20 MG TAB PO SCH ×2 (10:47→21:47)
--- NOTE | 2018-11-05 10:52 | NUR ---
About 280 ml of clear, yellowish urine emptied from the urinal. Sitter at bedside.
[2018-11-05] MEDS ORDERED: acetaZOLAMIDE SODIUM 500 MG VL IV ONE (12:00)
[2018-11-05] MEDS ORDERED: POTASSIUM CHL 20 Meq TABLET PO ONE (12:00)
--- NOTE | 2018-11-05 12:00 | NUR ---
Dr. Bryant came over to see the patient. to put in new orders.
[2018-11-05 13:00] VITALS: BP 158/92
--- NOTE | 2018-11-05 13:29 | NUR ---
Called Pharmacy to follow up the Diamox Inj.
--- NOTE | 2018-11-05 16:30 | NUR ---
Received a call back from Loom Control Chain Builder ANYA Case that patient is scheduled for [facility] tomorrow as per Dr. Boo; allowed to have light breakfast, no coffee. ANYA Case made aware Dr. Groves ordered angiogram tomorrow; patient has (+) Stress Test yesterday, patient has a sitter at bedside.
[2018-11-05] MEDS: DEMECLOCYCLINE HCL 150 MG TAB PO SCH (17:46)
[2018-11-05 18:16] VITALS: BP 169/97
--- NOTE | 2018-11-05 20:00 | NUR ---
RECEIVED PATIENT IN BED, ASLEEP. NO DISTRESS NOTED. SITTER IS IN THE ROOM. WITH BLE SWELLING NOTED. SIDE RAILS UP. CALL LIGHT/TABLE IN REACH. KEPT COMFORTABLE. WILL FOLLOW UP CARE.
--- NOTE | 2018-11-05 21:00 | NUR ---
PER AM RN, PATIENT IS ALLOWED TO HAVE LIGHT BREAKFAST IN THE AM. A LITTLE STICKY NOTE IS IN THE PATIENT'S CHART. NOTED.
[2018-11-05 22:00] VITALS: BP 168/110
--- NOTE | 2018-11-05 22:00 | NUR ---
2130= 165/110. PATIENT IS ASYMPTOMATIC. OFFERED BLOOD PRESSURE MED, BUT PATIENT REFUSED. CONSEQUENCES EXPLAINED, BUT STILL REFUSED.
[2018-11-05] MEDS: hydrALAZINE HCL 20 MG/ML VL IV PRN (22:09)
[2018-11-05 23:08] VITALS: BP 162/95
[2018-11-06] VITALS (7 sets, daily range): BP systolic 122–166; BP diastolic 73–102
--- NOTE | 2018-11-06 00:30 | NUR ---
PATIENT INSISTED ON GETTING WATER EXCEEDING 400 ML ORDERED. REFUSED TO FOLLOW MD ORDER. CONSEQUENCES EXPLAINED AND GOT UPSET AND HE SAID, " I CAN GO ANYTIME NOW ". WILL MONITOR PATIENT.
[2018-11-06] MEDS: DEMECLOCYCLINE HCL 150 MG TAB PO SCH ×5 (00:40→23:51)
--- NOTE | 2018-11-06 03:30 | NUR ---
PATIENT REFUSED IV FLUIDS. CONSEQUENCES EXPLAINED, BUT STILL REFUSED. CORE INSERTER AT BEDSIDE WITNESSED.
[2018-11-06 06:11] LABS: BUN/Creatinine Ratio 11.7; Calcium 8.5 mg/dL (8.5-10.1); Potassium 3.5 mmol/L (3.5-5.1)
[2018-11-06] MEDS: CLINDAMYCIN HCL 150 MG CAP PO SCH ×2 (06:15→13:17)
[2018-11-06] MEDS: LEVOTHYROXINE SODIUM 50 MCG TAB PO SCH (06:16)
--- NOTE | 2018-11-06 06:23 | NUR ---
ON BED, AWAKE. NO CHANGES NOTED. FOR MORE CARE AND MANAGEMENT.
--- NOTE | 2018-11-06 07:35 | NUR ---
Opening Shift Note Assumed care of patient, awake and alert. No S/S of distress/SOB or pain. Instructed on POC and to call for assist PRN, will continue to monitor for changes Q1hr and PRN. Sitter at bedside.
--- NOTE | 2018-11-06 09:45 | NUR ---
Received patient with Sodium Chloride 3% hung on patients IV pole, patient was disconnected to IV fluid, pump was off, IV fluid was not administered.
--- NOTE | 2018-11-06 09:50 | NUR ---
Patient down in shipyard laborer for procedure.
[2018-11-06] MEDS: LISINOPRIL 10 MG TAB PO SCH ×2 (10:00→13:20)
[2018-11-06] MEDS: amLODIPine BESYLATE 5 MG TAB PO SCH ×2 (10:00→13:20)
[2018-11-06] MEDS: METOPROLOL TARTRATE 25 MG TAB PO SCH ×2 (10:00→21:28)
[2018-11-06] MEDS: FAMOTIDINE 20 MG TAB PO SCH ×2 (10:00→21:28)
[2018-11-06] MEDS: ENOXAPARIN SOD 40 MG/0.4 ML SYRINGE SC SCH (10:00)
--- NOTE | 2018-11-06 11:14 | NUR ---
Nutrition Follow-up Notes Wt.: 92.5 kg Pt was off the floor when rounded this am. per records pt to have hearth cath today. pt with no distress noted, now resumed with 2 gm na diet with adequate PO of >75% x 5 per RN doc Est. Needs: 1850 kcal to 2300 kcal (20-25 kcal/kgBW), 74 gms to 93 gms pro (0.8-1.0 gms/kgBW). Will continue to monitor pertinent labs and reassess nutrient need prn Labs: All nutrition related lab wnl for today Skin: Brian scale 20, low skin intact per RN doc GI: Pt had 2 BM on 11/05 per report developer. PES: Altered nutrition related lab values r/t current/chronic medical condition aeb hyponatremia, hypokalemia, hypochloremia, elev.LFTs, hyperbilirubinemia, LDL, TSH hypocalcemia Will continue to monitor PO intake, skin status, pertinent labs and weight trend. F/u in 3-5 days. Rec.: 1.) Continue close supervision with meals 2.) Refer to RD for further nutrition education and weight monitoring upon discharged. 3.) Continue current plan of care.
[2018-11-06] MEDS: SOD CHL 0.9%/ KCL 20MEQ 1,000 ML IV SCH ×2 (11:30→21:28)
--- NOTE | 2018-11-06 12:00 | NUR ---
Patient refusing IV fluids.
--- NOTE | 2018-11-06 12:35 | NUR ---
Patient back on med-surg floor.
--- NOTE | 2018-11-06 13:00 | NUR ---
PATIENT REFUSED BLOOD PRESSURE MEDICATIONS, BLOOD PRESSURE CURRENTLY 153/87, PATIENT HAS BEEN EDUCATED ON IMPORTANCE OF MEDICATION REGIMENT. WILL CONTINUE TO MONITOR. SITTER AT BEDSIDE.
[2018-11-06] MEDS: MULTIPLE VITAMIN TAB PO SCH (13:17)
[2018-11-06] MEDS: THIAMINE HCL 100 MG TAB PO SCH (13:17)
[2018-11-06] MEDS ORDERED: HYDROcodone-ACET 5/325MG TAB PO PRN (14:45)
--- NOTE | 2018-11-06 18:00 | NUR ---
Patient is refusing all medications other than a multivitamin and Thiamine HCL.
--- NOTE | 2018-11-06 18:56 | NUR ---
Closing note: Patient is sitting up in bed, no c/o pain. No s/s of distress/SOB noted/stated. Bed at lowest position and call light within reach. Sitter at bedside. Will endorse acre to DANIELLE RN.
--- NOTE | 2018-11-06 19:40 | NUR ---
RECEIVED PATIENT IN BED, ASLEEP. NO DISTRESS NOTED. PATIENT IS STABLE. SITTER IS WITH PATIENT. SAKINA RAILS UP. CALL LIGHT/TABLE IN REACH. KEPT COMFORTABLE. WILL FOLLOW UP CARE.
--- NOTE | 2018-11-06 21:00 | NUR ---
REFUSED MEDS. CONSEQUENCES EXPLAINED, BUT STILL REFUSED. NOTED.
[2018-11-07 05:00] VITALS: BP 155/94
[2018-11-07] MEDS: LEVOTHYROXINE SODIUM 50 MCG TAB PO SCH (05:28)
[2018-11-07] MEDS: DEMECLOCYCLINE HCL 150 MG TAB PO SCH ×3 (05:28→18:28)
[2018-11-07 06:00] LABS: Basophils # (auto) 0.1 uL; Lymphocytes # (auto) 0.8 uL; Monocytes # (auto) 0.3 uL; Neutrophils # (auto) 1.9 uL; Nucleated Red Blood Cells % 0.1 %
[2018-11-07 06:02] LABS: Basophils % (auto) 2.3 % (0.0-2.0); Eosinophils # (auto) 0.2 uL; Eosinophils % (auto) 5.1 % (0.0-7.0); Hematocrit 34.6 % (41.0-53.0); Lymphocytes % (auto) 23.3 % (10.0-50.0); Mean Corpuscular Hemoglobin 34.7 pg (28.0-32.0); Mean Corpuscular Hgb Conc. 34.8 g/dL (32.0-36.0); Mean Corpuscular Volume 99.8 fL (80.0-100.0); Monocytes % (auto) 10.5 % (0.0-12.0); Neutrophils % (auto) 58.8 % (37.0-80.0); Platelet Count (auto) 305 10^3/uL (140-450); Red Blood Cells 3.46 10^6/uL (4.5-5.90); Red Cell Distribution Width 15.4 % (11.8-14.3); White Blood Cell 3.2 10^3/uL (4.4-10.8)
[2018-11-07 06:38] LABS: BUN/Creatinine Ratio 13.6; Calcium 8.5 mg/dL (8.5-10.1); Potassium 3.5 mmol/L (3.5-5.1)
--- NOTE | 2018-11-07 06:43 | NUR ---
ON BED, AWAKE. STABLE. NO DISTRESS NOTED. FOR MORE CARE AND MANAGEMENT.
--- NOTE | 2018-11-07 07:45 | NUR ---
OPENING NOTE Assumed care of patient from NOC RN. Patient resting in bed with eyes closed, even rise and fall of chest noted. No S/S of distress/SOB or pain. Sitter at bedside for patient's safety. Bed in lowest, locked position with side rails up x2. Fall precautions in place and call light within reach. Will continue to monitor for changes Q1hr and PRN.
[2018-11-07 08:00] VITALS: BP 183/110
--- NOTE | 2018-11-07 10:50 | NUR ---
REFUSED MED Patient is refusing to take scheduled BP medications. Current BP reading 186/113 HR 64. Explained risks of high blood pressure, patient continues to refuse.
[2018-11-07] MEDS: THIAMINE HCL 100 MG TAB PO SCH (10:59)
[2018-11-07] MEDS: ENOXAPARIN SOD 40 MG/0.4 ML SYRINGE SC SCH (11:00)
[2018-11-07] MEDS: LISINOPRIL 10 MG TAB PO SCH (11:00)
[2018-11-07] MEDS: MULTIPLE VITAMIN TAB PO SCH (11:00)
[2018-11-07] MEDS: FAMOTIDINE 20 MG TAB PO SCH ×2 (11:00→22:00)
[2018-11-07] MEDS: amLODIPine BESYLATE 5 MG TAB PO SCH (11:01)
[2018-11-07] MEDS: METOPROLOL TARTRATE 25 MG TAB PO SCH ×2 (11:01→22:00)
[2018-11-07] MEDS ORDERED: hydrALAZINE HCL 20 MG/ML VL IV PRN (12:15)
[2018-11-07 13:00] VITALS: BP 167/101
[2018-11-07] MEDS: SOD CHL 0.9%/ KCL 20MEQ 1,000 ML IV SCH (14:10)
[2018-11-07] MEDS ORDERED: POTASSIUM EFFERVESENT TAB 25 MEQ PO ONE (15:15)
[2018-11-07 17:00] VITALS: BP 164/97
--- NOTE | 2018-11-07 19:30 | NUR ---
CLOSING NOTE Endorsed care of patient to NOC Jose JOYNER.
--- NOTE | 2018-11-07 20:00 | NUR ---
open note assumed care of pt. upon entering room pt awake and alert. medical transcription supervisor at bedside. pt updated on plan of care. no distress noted or expressed. pt denied any pain. no questions at this time. call light in reach. will round q1hr and PRN.
[2018-11-07 22:00] VITALS: BP 147/87
--- NOTE | 2018-11-07 22:00 | NUR ---
pt refused bp medication despite education on its functions and benefits.
[2018-11-08] MEDS: DEMECLOCYCLINE HCL 150 MG TAB PO SCH ×4 (00:30→17:50)
[2018-11-08 05:40] VITALS: BP 157/89
[2018-11-08] MEDS: LEVOTHYROXINE SODIUM 50 MCG TAB PO SCH (06:38)
[2018-11-08 06:40] LABS: Calcium 8.6 mg/dL (8.5-10.1); Potassium 3.9 mmol/L (3.5-5.1)
[2018-11-08 06:42] LABS: BUN/Creatinine Ratio 16.1
--- NOTE | 2018-11-08 07:15 | NUR ---
Opening Shift Note Report and assumed care of patient, awake and alert. No S/S of distress/SOB or pain. Instructed on POC and to call for assist PRN, Call light within reach, bed alarm activated, environmental safety specialist at [facility],able to demonstrate how to use call light. will continue to monitor for changes Q1hr and PRN.
[2018-11-08 09:00] VITALS: BP 108/63
[2018-11-08] MEDS: METOPROLOL TARTRATE 25 MG TAB PO SCH ×2 (10:00→22:00)
[2018-11-08] MEDS: amLODIPine BESYLATE 5 MG TAB PO SCH (10:00)
[2018-11-08] MEDS: LISINOPRIL 10 MG TAB PO SCH (10:00)
[2018-11-08] MEDS: MULTIPLE VITAMIN TAB PO SCH (10:41)
[2018-11-08] MEDS: ENOXAPARIN SOD 40 MG/0.4 ML SYRINGE SC SCH (10:44)
[2018-11-08] MEDS: FAMOTIDINE 20 MG TAB PO SCH ×2 (10:44→22:06)
[2018-11-08] MEDS: THIAMINE HCL 100 MG TAB PO SCH (10:44)
[2018-11-08] MEDS ORDERED: POTASSIUM CHL 20 Meq TABLET PO ONE (10:45)
[2018-11-08] MEDS ORDERED: FUROSEMIDE 40 MG TAB PO ONE (10:45)
--- NOTE | 2018-11-08 11:35 | NUR ---
CLARIFIED ABG ORDER TO DR. FOX,RECEIVED ORDERS AND ORDER TO BOLUS PATIENT WITH .9NS 50 ML FOR 1 HOUR, SEE ORDERS ENTERED, Addendum: 11/08/18 at 1353 by Marisabel Richardson RN RN 500 ML FOR 1 HOUR
[2018-11-08] MEDS ORDERED: SODIUM CHLORIDE 0.9% 500 ML IV ONE (11:45)
--- NOTE | 2018-11-08 11:55 | NUR ---
PATIENT REFUSED IVF BOLUS,DR. FOX AWARE
--- NOTE | 2018-11-08 12:25 | NUR ---
ABG RESULT SEEN BY DR. FOX
[2018-11-08 12:53] VITALS: BP 153/73
[2018-11-08] MEDS ORDERED: LORazepam 0.5 MG TAB PO PRN (14:00)
[2018-11-08 16:28] VITALS: BP 144/90
--- NOTE | 2018-11-08 19:11 | NUR ---
REPORT GIVEN TO INCOMING NOC SHIFT NO DISTRESS NO DISCOMFORT
--- NOTE | 2018-11-08 20:00 | NUR ---
open note assumed care of pt. sitter at bedside. awake and alert, pt denied any pain, no distress noted or expressed. pt updated on plan of care. call light in reach, will round q1hr and as needed.
[2018-11-08 21:50] VITALS: BP 151/99
--- NOTE | 2018-11-08 22:06 | NUR ---
pt refused BP medication despite education on its importance and risks associated with refusal.
[2018-11-09] MEDS: DEMECLOCYCLINE HCL 150 MG TAB PO SCH ×4 (01:26→18:41)
[2018-11-09 04:47] VITALS: BP 185/99
--- NOTE | 2018-11-09 05:32 | NUR ---
pt refused prn bp medication despite elevated bp and this nurse explaining risks associated with high blood pressure.
[2018-11-09 05:57] LABS: BUN/Creatinine Ratio 16.1; Calcium 8.5 mg/dL (8.5-10.1); Magnesium 2.1 mg/dL (1.6-2.6)
[2018-11-09] MEDS: LEVOTHYROXINE SODIUM 50 MCG TAB PO SCH (06:23)
--- NOTE | 2018-11-09 07:15 | NUR ---
Opening Shift Note Report and assumed care of patient,asleep, No S/S of distress/SOB or pain. safety professional at bedside, will continue to monitor for changes Q1hr and PRN.
[2018-11-09 09:24] VITALS: BP 168/96
--- NOTE | 2018-11-09 09:55 | NUR ---
MD VISIT DR. GATICA HERE AWARE OF LOW SODIUM LEVEL OF 119,RECEIVED ORDER FOR 3% NS AND LASIX IV,SEE ORDER WRITTEN
[2018-11-09] MEDS ORDERED: FUROSEMIDE 20 MG/2 ML VIAL IV ONE (10:00)
[2018-11-09] MEDS: amLODIPine BESYLATE 5 MG TAB PO SCH (10:00)
[2018-11-09] MEDS: METOPROLOL TARTRATE 25 MG TAB PO SCH ×2 (10:00→21:23)
[2018-11-09] MEDS ORDERED: SODIUM CHL 3% 500 ML IV ONE (10:00)
[2018-11-09] MEDS: LISINOPRIL 10 MG TAB PO SCH (10:00)
--- NOTE | 2018-11-09 10:10 | NUR ---
PATIENT REFUSED TO TAKE BP MEDICATION IN SPITE OF EXPLAINING INDICATION,IMPORTANCE AND MADE HIM AWARE THAT BP IS 168/99.
[2018-11-09] MEDS: FAMOTIDINE 20 MG TAB PO SCH ×2 (10:21→21:22)
[2018-11-09] MEDS: THIAMINE HCL 100 MG TAB PO SCH (10:21)
[2018-11-09] MEDS: ENOXAPARIN SOD 40 MG/0.4 ML SYRINGE SC SCH (10:22)
[2018-11-09] MEDS: MULTIPLE VITAMIN TAB PO SCH (10:22)
--- NOTE | 2018-11-09 10:45 | NUR ---
PATIENT INFORMED OF MEDICATION TO BE GIVEN LIKE 3% NS AND LASIX IV, DUE TO LOW Na+ LEVEL OF 119,PATIENT REFUSED,PATIENT STATED NOTHING TO BE GIVEN THRU HIS IV,EXPLAIN IMPORTANCE AND INDICATION, PATIENT STILL REFUSED.
--- NOTE | 2018-11-09 10:50 | NUR ---
DR. GATICA INFORMED OF PATIENT REFUSAL OF ABOVE MEDICATION
--- NOTE | 2018-11-09 11:00 | NUR ---
DR. GTAICA AT BEDSIDE SPOKE TO PATIENT AND EXPLAIN IN DETAIL IMPORTANCE OF MEDICATIONS ORDERED AND EXPLAIN RISK OF HAVING LOW Na+ OF 119,PATIENT STILL REFUSED. RECEIVED ORDER FOR Na+ PO AND LASIX PO SEE ORDER WRITTEN.
[2018-11-09 12:27] LABS: BUN/Creatinine Ratio 14.4; Calcium 8.6 mg/dL (8.5-10.1); Potassium 3.9 mmol/L (3.5-5.1)
[2018-11-09] MEDS: FUROSEMIDE 40 MG TAB PO SCH ×2 (12:41→18:41)
[2018-11-09] MEDS: SODIUM CHLORIDE 1 GM TAB PO SCH ×3 (12:42→21:23)
[2018-11-09 13:26] VITALS: BP 159/103
[2018-11-09 17:58] VITALS: BP 137/84
--- NOTE | 2018-11-09 19:20 | NUR ---
REPORT GIVEN TO INCOMING NOC SHIFT RN ,NO DISTRESS NO DISCOMFORT
--- NOTE | 2018-11-09 19:30 | NUR ---
Opening Shift Note Assumed care of patient, awake and alert. Sitter at bedside for safety. No S/S of distress/SOB or pain. Patient reminded of importance of fluid restriction. Bed locked in lowest position, side rails upx2, call light within reach. Instructed on POC and to call for assist PRN, will continue to monitor for changes Q1hr and PRN.
[2018-11-09 20:56] LABS: BUN/Creatinine Ratio 13.6; Calcium 8.5 mg/dL (8.5-10.1); Potassium 3.5 mmol/L (3.5-5.1)
--- NOTE | 2018-11-09 21:05 | NUR ---
Refusing BP med Patient refusing schedule Lopressor 25mg at this time. Current BP is 127/67. Educated on importance of medication and risk associated with refusal.
[2018-11-09 22:00] VITALS: BP 127/67
[2018-11-10] MEDS: DEMECLOCYCLINE HCL 150 MG TAB PO SCH ×5 (00:07→23:46)
[2018-11-10 01:16] LABS: Calcium 8.1 mg/dL (8.5-10.1); Potassium 3.7 mmol/L (3.5-5.1)
[2018-11-10 01:18] LABS: BUN/Creatinine Ratio 14.7
[2018-11-10 05:00] VITALS: BP 173/105
[2018-11-10] MEDS: SODIUM CHLORIDE 1 GM TAB PO SCH ×4 (06:00→21:15)
[2018-11-10 06:15] LABS: Calcium 8.2 mg/dL (8.5-10.1); Potassium 3.6 mmol/L (3.5-5.1)
[2018-11-10] MEDS: FUROSEMIDE 40 MG TAB PO SCH ×2 (06:18→18:10)
[2018-11-10] MEDS: LEVOTHYROXINE SODIUM 50 MCG TAB PO SCH (06:19)
--- NOTE | 2018-11-10 07:15 | NUR ---
Opening Shift Note Received report and assumed care of patient,asleep but easily arousable.health and safety technician at bedside. No S/S of distress/SOB. Instructed on POC , will continue to monitor for changes Q1hr and PRN.
[2018-11-10 09:08] VITALS: BP 146/72
[2018-11-10] MEDS: METOPROLOL TARTRATE 25 MG TAB PO SCH ×2 (10:00→21:15)
[2018-11-10] MEDS: amLODIPine BESYLATE 5 MG TAB PO SCH (10:00)
[2018-11-10] MEDS: LISINOPRIL 10 MG TAB PO SCH (10:00)
[2018-11-10] MEDS: THIAMINE HCL 100 MG TAB PO SCH (10:40)
[2018-11-10] MEDS: MULTIPLE VITAMIN TAB PO SCH (10:40)
[2018-11-10] MEDS: FAMOTIDINE 20 MG TAB PO SCH ×2 (10:40→21:14)
[2018-11-10] MEDS: ENOXAPARIN SOD 40 MG/0.4 ML SYRINGE SC SCH (10:41)
--- NOTE | 2018-11-10 12:00 | NUR ---
MD VISIT DR. Skylar LEZAMA HERE TO SEE AND EXAMINED PATIENT,PATIENT INFORMED,EDUCATED WITH PLAN OF CARE,TREATMENTS AND IMPORTANCE OF TAKING MEDICATION.PATIENT STILL INSIST WHAT HE WANTS.
[2018-11-10 12:49] LABS: BUN/Creatinine Ratio 14.7; Calcium 8.2 mg/dL (8.5-10.1); Potassium 3.2 mmol/L (3.5-5.1)
[2018-11-10 13:00] VITALS: BP 138/75
--- NOTE | 2018-11-10 13:16 | NUR ---
Nutrition Follow-up Notes Wt.: 94.1 kg as of yesterday. Pt's on oxygen via nasal cannula, asleep, no immediate family member at bedside when rounded this morning. Pt's no signs of distress noted earlier, currently on 2 gm Na diet with adequate PO intake aeb 80% ave. consumed meals (x7) in last 3 days. Est. Needs: 1850 kcal to 2300 kcal (20-25 kcal/kgBW), 74 gms to 93 gms pro (0.8-1.0 gms/kgBW). Will continue to monitor pertinent labs and reassess nutrient need prn Labs: Na 124 L, Cl 84 L, K 3.2 L, CO2 33 H, Ca 8.2 L Skin: Brian scale 20, low skin intact per RN doc GI: Pt had 1 BM on 11/08/18 per bakery technician. PES: Altered nutrition related lab values r/t current/chronic medical condition aeb hyponatremia, hypokalemia, hypochloremia, elev.LFTs, hyperbilirubinemia, LDL, TSH hypocalcemia Will continue to monitor PO intake, skin status, pertinent labs and weight trend. F/u in 3 to 5 days. Rec.: 1.) Continue close supervision with meals 2.) Refer to RD for further nutrition education and weight monitoring upon discharged. 3.) Continue current plan of care.
--- NOTE | 2018-11-10 13:35 | NUR ---
DR. GATICA HERE TO SEE PATIENT INFORMED OF NA+ LEVEL AND K+ LEVEL OF 3.2 (11:00 DRAW) RECEIVED ORDER FOR POTASSIUM REPLACEMENT 40 MEQ,SEE WRITTEN ORDER.
[2018-11-10] MEDS ORDERED: POTASSIUM CHL 20 Meq TABLET PO ONE (13:45)
[2018-11-10 17:00] VITALS: BP 158/90
--- NOTE | 2018-11-10 19:10 | NUR ---
Closing Note Report given to NOC shift RN. No signs or symptoms of distress noted at this time. Sitter at bedside for safety.
--- NOTE | 2018-11-10 21:22 | NUR ---
Refusing BP med Patient refusion 2200 lopressor 25mg. Current BP is 159/71. Educated on patient on importance of taken BP medication and risks associated with refusal.
[2018-11-10 22:00] VITALS: BP 159/71
[2018-11-11 05:00] VITALS: BP 108/74
[2018-11-11 05:30] LABS: Basophils # (auto) 0.1 uL; Neutrophils # (auto) 2.9 uL; Nucleated Red Blood Cells % 0.1 %; White Blood Cell 4.6 10^3/uL (4.4-10.8)
[2018-11-11 05:38] LABS: Basophils % (auto) 3.1 % (0.0-2.0); Eosinophils # (auto) 0.2 uL; Eosinophils % (auto) 3.3 % (0.0-7.0); Hematocrit 33.3 % (41.0-53.0); Hemoglobin 11.8 g/dL (13.5-17.5); Lymphocytes % (auto) 21.7 % (10.0-50.0); Mean Corpuscular Hgb Conc. 35.4 g/dL (32.0-36.0); Mean Corpuscular Volume 98.8 fL (80.0-100.0); Monocytes # (auto) 0.4 uL; Monocytes % (auto) 9.3 % (0.0-12.0); Neutrophils % (auto) 62.6 % (37.0-80.0); Platelet Count (auto) 452 10^3/uL (140-450); Red Blood Cells 3.37 10^6/uL (4.5-5.90); Red Cell Distribution Width 15.6 % (11.8-14.3)
[2018-11-11 05:51] LABS: Potassium 3.6 mmol/L (3.5-5.1)
[2018-11-11 05:58] LABS: Calcium 8.6 mg/dL (8.5-10.1)
[2018-11-11] MEDS: DEMECLOCYCLINE HCL 150 MG TAB PO SCH ×4 (06:11→23:53)
[2018-11-11] MEDS: SODIUM CHLORIDE 1 GM TAB PO SCH ×3 (06:13→22:07)
[2018-11-11] MEDS: FUROSEMIDE 40 MG TAB PO SCH ×2 (06:13→14:57)
[2018-11-11] MEDS: LEVOTHYROXINE SODIUM 50 MCG TAB PO SCH (06:13)
--- NOTE | 2018-11-11 07:15 | NUR ---
Opening Shift Note Received report and assumed care of patient,asleep but easily arousable.health and safety instructor at bedside. No S/S of distress/SOB. Instructed on POC , will continue to monitor for changes Q1hr and PRN.
[2018-11-11] MEDS: MULTIPLE VITAMIN TAB PO SCH (09:24)
[2018-11-11] MEDS: ENOXAPARIN SOD 40 MG/0.4 ML SYRINGE SC SCH (09:25)
[2018-11-11] MEDS: THIAMINE HCL 100 MG TAB PO SCH (09:25)
[2018-11-11] MEDS: FAMOTIDINE 20 MG TAB PO SCH ×2 (09:25→22:08)
[2018-11-11] MEDS: LISINOPRIL 10 MG TAB PO SCH (09:27)
[2018-11-11] MEDS: amLODIPine BESYLATE 5 MG TAB PO SCH (09:28)
[2018-11-11] MEDS: METOPROLOL TARTRATE 25 MG TAB PO SCH ×2 (09:29→22:00)
--- NOTE | 2018-11-11 10:00 | NUR ---
MD VISIT DR. GATICA HERE TO SEE AND EXAMINED PATIENT,INFORMED OF PATIENT CONCERNS AND DIET, RECEIVED ORDERS.
[2018-11-11] MEDS ORDERED: HYDROcodone-ACET 5/325MG TAB PO PRN (15:00)
--- NOTE | 2018-11-11 15:00 | NUR ---
Resting, no distress no discomfort
--- NOTE | 2018-11-11 19:13 | NUR ---
REPORT GIVEN TO INCOMING NOC SHIFT RN ,NO DISTRESS NO DISCOMFORT
--- NOTE | 2018-11-11 19:15 | NUR ---
Opening Shift Note Received report from Vicky JOYNER. Assumed care of patient, awake and alert, sitter at bedside for safety. No S/S of distress/SOB or pain. Instructed on POC and to call for assist PRN, will continue to monitor for changes Q1hr and PRN.
[2018-11-11 21:38] VITALS: BP 103/58
[2018-11-12 04:47] VITALS: BP 156/83
[2018-11-12 05:57] LABS: Eosinophils # (auto) 0.1 uL; Eosinophils % (auto) 2.7 % (0.0-7.0); Hemoglobin 11.5 g/dL (13.5-17.5); Monocytes # (auto) 0.6 uL; Platelet Count (auto) 462 10^3/uL (140-450)
[2018-11-12 06:01] LABS: Basophils # (auto) 0.1 uL; Basophils % (auto) 2.6 % (0.0-2.0); Hematocrit 34.4 % (41.0-53.0); Lymphocytes % (auto) 19.1 % (10.0-50.0); Mean Corpuscular Hemoglobin 33.1 pg (28.0-32.0); Mean Corpuscular Hgb Conc. 33.3 g/dL (32.0-36.0); Mean Corpuscular Volume 99.3 fL (80.0-100.0); Monocytes % (auto) 10.6 % (0.0-12.0); Neutrophils # (auto) 3.4 uL; Nucleated Red Blood Cells % 0.1 %; Red Blood Cells 3.47 10^6/uL (4.5-5.90); White Blood Cell 5.3 10^3/uL (4.4-10.8)
[2018-11-12] MEDS: DEMECLOCYCLINE HCL 150 MG TAB PO SCH ×2 (06:03→12:43)
[2018-11-12] MEDS: SODIUM CHLORIDE 1 GM TAB PO SCH ×3 (06:04→21:54)
[2018-11-12] MEDS: FUROSEMIDE 40 MG TAB PO SCH ×2 (06:06→14:32)
[2018-11-12] MEDS: LEVOTHYROXINE SODIUM 50 MCG TAB PO SCH (06:36)
[2018-11-12 08:00] VITALS: BP 145/73
[2018-11-12 08:30] LABS: BUN/Creatinine Ratio 18.3; Calcium 8.5 mg/dL (8.5-10.1); Potassium 3.5 mmol/L (3.5-5.1)
[2018-11-12 08:45] VITALS: BP 145/73
[2018-11-12] MEDS: amLODIPine BESYLATE 5 MG TAB PO SCH (10:00)
[2018-11-12] MEDS: METOPROLOL TARTRATE 25 MG TAB PO SCH ×2 (10:00→21:55)
[2018-11-12] MEDS: LISINOPRIL 10 MG TAB PO SCH (10:00)
[2018-11-12] MEDS: THIAMINE HCL 100 MG TAB PO SCH (11:03)
[2018-11-12] MEDS: FAMOTIDINE 20 MG TAB PO SCH ×2 (11:04→21:54)
[2018-11-12] MEDS: ENOXAPARIN SOD 40 MG/0.4 ML SYRINGE SC SCH (11:04)
[2018-11-12] MEDS: MULTIPLE VITAMIN TAB PO SCH (11:04)
--- NOTE | 2018-11-12 11:46 | NUR ---
DR. OCAMPO ROUNDED ON PATIENT. ORDERS OBTAINED. SHE INFORMED ME THAT SHE SPOKE WITH DR. SEGOVIA AND HE SAID THAT THE PATIENT CAN BE A 1500ML/24 HR RESTRICTION NOW.
[2018-11-12 13:00] VITALS: BP 143/96
[2018-11-12 17:00] VITALS: BP 139/90
--- NOTE | 2018-11-12 19:20 | NUR ---
Opening Shift Note Received report from Kamaljit JOYNER. Assumed care of patient, awake and alert, sitter at bedside. No S/S of distress/SOB or pain. Instructed on POC and to call for assist PRN, will continue to monitor for changes Q1hr and PRN.
[2018-11-12] MEDS: POTASSIUM CHL 20 Meq TABLET PO SCH (21:54)
[2018-11-12 22:00] VITALS: BP 157/96
[2018-11-13 04:55] VITALS: BP 165/109
[2018-11-13 05:58] LABS: Eosinophils # (auto) 0.2 uL; Mean Corpuscular Hemoglobin 34.2 pg (28.0-32.0); Monocytes # (auto) 0.6 uL
[2018-11-13 06:01] LABS: Basophils # (auto) 0.2 uL; Basophils % (auto) 2.9 % (0.0-2.0); Eosinophils % (auto) 2.7 % (0.0-7.0); Hematocrit 33.7 % (41.0-53.0); Hemoglobin 11.6 g/dL (13.5-17.5); Lymphocytes % (auto) 17.6 % (10.0-50.0); Mean Corpuscular Hgb Conc. 34.5 g/dL (32.0-36.0); Mean Corpuscular Volume 99.1 fL (80.0-100.0); Neutrophils # (auto) 3.7 uL; Neutrophils % (auto) 65.8 % (37.0-80.0); Platelet Count (auto) 480 10^3/uL (140-450); White Blood Cell 5.7 10^3/uL (4.4-10.8)
[2018-11-13 06:13] LABS: Potassium 3.5 mmol/L (3.5-5.1)
[2018-11-13 06:17] LABS: BUN/Creatinine Ratio 19.8; Calcium 8.6 mg/dL (8.5-10.1)
[2018-11-13] MEDS: LEVOTHYROXINE SODIUM 50 MCG TAB PO SCH (06:34)
[2018-11-13] MEDS: FUROSEMIDE 40 MG TAB PO SCH ×2 (06:34→14:00)
[2018-11-13] MEDS: SODIUM CHLORIDE 1 GM TAB PO SCH ×2 (06:34→14:40)
--- NOTE | 2018-11-13 07:25 | NUR ---
Care endorsed to Kelly JOYNER.
--- NOTE | 2018-11-13 07:40 | NUR ---
OPENING Patient awake, ate breakfast, in bed, bed in lowest position, call light within reach. A few complaints per patient he request a new physician will talk with hospitalist about change and conversation with the patient will f/u with morning assessment current sodium 132 potassium 3.5 urine sodium 31 Low
[2018-11-13 09:00] VITALS: BP 133/81
[2018-11-13] MEDS ORDERED: ENOXAPARIN SOD 40 MG/0.4 ML SYRINGE SC SCH (10:00)
[2018-11-13] MEDS: POTASSIUM CHL 20 Meq TABLET PO SCH (10:46)
[2018-11-13] MEDS: FAMOTIDINE 20 MG TAB PO SCH (10:46)
[2018-11-13] MEDS: METOPROLOL TARTRATE 25 MG TAB PO SCH (10:47)
[2018-11-13] MEDS: amLODIPine BESYLATE 5 MG TAB PO SCH (10:47)
[2018-11-13] MEDS: THIAMINE HCL 100 MG TAB PO SCH (10:47)
[2018-11-13] MEDS: LISINOPRIL 10 MG TAB PO SCH (10:47)
[2018-11-13] MEDS: MULTIPLE VITAMIN TAB PO SCH (10:48)
[2018-11-13] MEDS ORDERED: MET25T PO (11:03)
[2018-11-13] MEDS ORDERED: LEV50T PO (11:03)
[2018-11-13] MEDS ORDERED: LISI10TA6 PO (11:03)
[2018-11-13] MEDS ORDERED: POTA20TA53 PO (11:03)
[2018-11-13] MEDS ORDERED: FURO40TA4 PO (11:03)
[2018-11-13] MEDS ORDERED: AML5T PO (11:03)
[2018-11-13] MEDS ORDERED: ASP81EC PO (11:04)
[2018-11-13] MEDS ORDERED: ATOR10TA PO ×2 (11:18→11:20)
--- NOTE | 2018-11-13 12:39 | NUR ---
MD SALCEDO AFTER PAGING, HE STATES HE WILL DO THE HEART CATHETERIZATION AN OUTPATIENT. CONTINUE WITH DISCHARGE
[2018-11-13 13:00] VITALS: BP 139/72
--- NOTE | 2018-11-13 15:40 | NUR ---
rodriguez stress test was okay, patient may follow up with cardiology at his home location as an outpatient
--- NOTE | 2018-11-13 15:47 | NUR ---
tadeo dumont CERTIFIED ACTIVITIES DIRECTOR continue the discharge, try to find carn[facility] transport per patient request alyce munson
[2018-11-13 16:24] VITALS: BP 133/81
[2018-11-13 16:49] VITALS: BP 163/97
--- NOTE | 2018-11-13 19:00 | NUR ---
discharge kamini [phone] contact for transport for patient, discharge paperwork is complete in the chart [facility] information [phone] (if necessary)
--- NOTE | 2018-11-13 20:30 | NUR ---
PT DISCHARGED to self, and Jp Paula, friend and employer waiting at admissions desk, for transport. Pt states he understands discharge instructions and that he needs a heart cath which he refused while he was here. Instructions given to make appointment for outpatient procedure. Pt has no chest pain or c/o of any pain. BP 132/68, pulse 72, r 20. No fever. Written prescriptions given. Pt signed that he has all of his belongings. Pt exposing his scrotum to nurse and instructed to cover up. Pt also continued to touch his genitals and instructed that this is inappropriate behavior, so pt discontinued behavior. IV discontinued right forearm, 20 gauge intact. No bleeding, no redness at site.
== END 2018-11-13 20:30 | disposition home or self-care (01) | DRG 643 ==
LOC: ER 11:57 → TELE 14:24 → TELE-WESTW 21:08 → WEST WING 11-01 15:37
PROVIDERS: ADMIT Internal Medicine; ATTEND Internal Medicine
DX: E22.2 Syndrome of inappropriate secretion of antidiuretic hormone (principal); I50.43 Acute on chronic combined systolic (congestive) and diastolic (congestive) heart failure; N17.0 Acute kidney failure with tubular necrosis; J96.00 Acute respiratory failure, unspecified whether with hypoxia or hypercapnia; I13.0 Hypertensive heart and chronic kidney disease with heart failure and stage 1 through stage 4 chronic kidney disease, or unspecified chronic kidney disease; D68.9 Coagulation defect, unspecified; E87.3 Alkalosis; I31.3 Pericardial effusion (noninflammatory); E87.6 Hypokalemia; E03.9 Hypothyroidism, unspecified; D63.8 Anemia in other chronic diseases classified elsewhere; I25.10 Atherosclerotic heart disease of native coronary artery without angina pectoris; E66.9 Obesity, unspecified; I25.2 Old myocardial infarction; N18.9 Chronic kidney disease, unspecified; K58.0 Irritable bowel syndrome with diarrhea; M21.962 Unspecified acquired deformity of left lower leg; Z79.899 Other long term (current) drug therapy; Z91.14 Patient's other noncompliance with medication regimen; Z91.19 Patient's noncompliance with other medical treatment and regimen
CPT/HCPCS: 36415; 36600; 70450; 71046; 73600; 78452; 80048; 80053; 80061; 80307; 81001; 82570; 82805; 83735; 83880; 83935; 84132; 84300; 84443; 84484; 85025; 85610; 85730; 87493; 93005; 93017; 93306; 94761; 96361; 96365; 96375; 97163; 99291; A6257; G0378; J0153; J0690; J3480; J3490